=== PATIENT | male | born 1950 | race Caucasian/White ===

== ENCOUNTER 2016-09-04 17:10 | Emergency (ER) | payer MEDICARE, OTHER ==
[2016-09-04 17:44] VITALS: BP 145/72
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
== END 2016-09-04 18:17 | disposition home or self-care (01) ==
LOC: LB.ED 17:10
DX: R07.89 Other chest pain (principal); K21.9 Gastro-esophageal reflux disease without esophagitis; E03.9 Hypothyroidism, unspecified; F41.9 Anxiety disorder, unspecified; Z87.440 Personal history of urinary (tract) infections; Z79.899 Other long term (current) drug therapy; Z79.82 Long term (current) use of aspirin
CPT/HCPCS: 93005; 99283; 99283-25

== ENCOUNTER 2016-12-25 17:51 | Emergency (ER) | payer MEDICARE, OTHER ==
[2016-12-25] MEDS ORDERED: HYDROmorphone 4 MG/ML Syringe SUBCUT PRN (18:24)
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
[2016-12-25 19:39] VITALS: BP 193/69
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
== END 2016-12-25 21:30 ==
LOC: LB.ED 17:51
DX: S61.511A Laceration without foreign body of right wrist, initial encounter (principal); S61.512A Laceration without foreign body of left wrist, initial encounter; F03.90 Unspecified dementia, unspecified severity, without behavioral disturbance, psychotic disturbance, mood disturbance, and anxiety; M54.9 Dorsalgia, unspecified; G89.29 Other chronic pain; K21.9 Gastro-esophageal reflux disease without esophagitis; E03.9 Hypothyroidism, unspecified; Z79.82 Long term (current) use of aspirin; Z79.899 Other long term (current) drug therapy; X78.8XXA Intentional self-harm by other sharp object, initial encounter
CPT/HCPCS: 96372; 99284; 99285-25

== ENCOUNTER 2018-11-30 10:20 | Observation (INO) | payer MEDICARE, OTHER ==
[2018-11-30] MEDS ORDERED: Dextrose 5%-0.45% NaCl 1,000 ML IV SCH (12:00)
--- NOTE | 2018-11-30 12:01 | EDM.PDOC ---
ED HPI GENERAL MEDICAL PROBLEM - General Chief Complaint: General Stated Complaint: NOT EATING Time Seen by Provider: 11/30/18 10:30 Source of Information: Reports: Patient History Limitations: Reports: Physical Impairment, Other (patient has frontal lobe dementia and has progressive worsening with little to no response on commands) - History of Present Illness INITIAL COMMENTS - FREE TEXT/NARRATIVE: This is a 68yo M in the ER for increased weakness some unresponsiveness and tremors. 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 His symptoms of frontal lobe dementia have slowly progressed over the years and he has difficulty responding to yes or no questions and commands. He did appear alert when I saw him in the ER but per nursing staff he had a bout of unresponsiveness and was brought to the ER shortly after. Patient does not reply but that is his baseline currently. He was alert and looking at me while asking questions but he was unable to answer. He had his mouth open and I did notice some lesions of the lower palate under the tongue. After his exam he appeared to relax and fall asleep. He remains unable or unwilling to move his arms on command. Onset: Sudden Duration: Resolved Prior to Arrival Location: Reports: Generalized Improves with: Reports: None Worsens with: Reports: None Associated Symptoms: Reports: Weakness - Related Data Allergies Allergy/AdvReac Type Severity Reaction Status Date / Time No Known Allergies Allergy Verified 11/30/18 11:39 Home Meds: Home Meds Aspirin [Halfprin] 81 mg PO DAILY 10/26/15 [History] Methocarbamol [Robaxin] 750 mg PO TID PRN 10/26/15 [History] Ranitidine HCl 150 mg PO QPM 10/26/15 [History] traZODone HCl [Trazodone HCl] 100 mg PO QPM 10/26/15 [History] Cholecalciferol (Vitamin D3) [Vitamin D3] 1,000 units PO DAILY 11/05/15 [History ] Escitalopram Oxalate [Lexapro] 10 mg PO DAILY 11/05/15 [History] Hydrocodone/Acetaminophen [Hydrocodon-Acetaminophen 5-325] 1 each PO Q4H PRN [History] LORazepam [Ativan] 0.5 mg PO Q4H PRN 11/05/15 [History] Methylphenidate [Ritalin] 10 mg PO TID 11/05/15 [History] Past Medical History HEENT History: Reports: Hard of Hearing Other Respiratory History: Diminished LS in right base Gastrointestinal History: Reports: GERD Genitourinary History: Reports: Other (See Below) Other Genitourinary History: recent UTI Musculoskeletal History: Reports: Back Pain, Chronic, Other (See Below) Other Musculoskeletal History: fracture of T11 to L1 in 1978 hit by falling tree Neurological History: Reports: Alzheimers Disease, Speech Problems, Other (See Below) Other Neuro History: spinal cord injury - paraplegia. recent dagnosis of frontal, temporal lobe dementia. Expressive asphagia Psychiatric History: Reports: Anxiety, Depression, Other (See Below) Other Psychiatric History: Insomnia, claustrophobia Endocrine/Metabolic History: Reports: Hypothyroidism - Past Surgical History Neurological Surgical History: Reports: Lumbar Spine Dermatological Surgical History: Reports: Skin Graft Social & Family History - Family History Family Medical History: Unobtainable - Caffeine Use Caffeine Use: Reports: Tea ED ROS GENERAL - Review of Systems Review Of Systems: ROS reveals no pertinent complaints other than HPI. ED EXAM, GENERAL - Physical Exam Exam: See Below Exam Limited By: Other (unable to respond and unable or unwilling to move his arms. He is paraplegic) General Appearance: Alert, WD/WN, No Apparent Distress Eye Exam: Bilateral Eye: EOMI, PERRL Ears: Normal External Exam Nose: Normal Inspection Throat/Mouth: Other (under tongue gum/palate lesions) Head: Atraumatic, Normocephalic Neck: Normal Inspection Respiratory/Chest: No Respiratory Distress, Lungs Clear, Normal Breath Sounds Cardiovascular: Normal Peripheral Pulses, Regular Rate, Rhythm Peripheral Pulses: 2+: Dorsalis Pedis (L), Dorsalis Pedis (R) GI/Abdominal: Normal Bowel Sounds Neurological: Slow to Respond (this is his baseline if he responds even at all. ) Psychiatric: Normal Affect, Normal Mood Course - Vital Signs Last Recorded V/S: Last Vital Signs Temp 37.3 C 11/30/18 11:50 Pulse 99 11/30/18 11:50 Resp 24 H 11/30/18 11:50 BP 158/105 H 11/30/18 11:50 Pulse Ox 99 11/30/18 11:50 - Orders/Labs/Meds Orders: Active Orders 24 hr Category Date Time Status Chest 1V Frontal [CR] Stat Exams 11/30/18 10:43 Taken Dextrose 5%-0.45% NaCl [Dextrose 5%-1/2 NS] 1,000 ml Med 11/30/18 12:00 Active IV ASDIRECTED Medication Orders Dextrose/Sodium Chloride (Dextrose 5%-1/2 Ns) 1,000 mls @ 999 mls/hr IV ASDIRECTED BERTHA Last Admin: 11/30/18 13:24 Dose: 999 mls/hr Labs: Laboratory Tests 11/30/18 11/30/18 11/30/18 Range/Units 10:43 10:55 10:55 WBC 11.2 H D (4.0-11.0) K/uL RBC 5.34 (4.50-6.50) M/uL Hgb 16.6 (13.0-18.0) g/dL Hct 47.8 (40.0-54.0) % MCV 90 (76-96) fL MCH 31.1 (27.0-32.0) pg MCHC 34.7 (31.0-35.0) g/dL RDW 14.1 (11.0-16.0) % Plt Count 271 D (150-400) K/uL MPV 10.5 H (6.0-10.0) fL Neut % (Auto) 83.6 H (45.0-70.0) % Lymph % (Auto) 7.9 L (20.0-40.0) % [place] % (Auto) 8.0 (3.0-10.0) % Eos % (Auto) 0.1 L (1.0-5.0) % Baso % (Auto) 0.4 (0.0-0.5) % Neut # (Auto) 9.36 H (2.00-7.50) K/uL Lymph # (Auto) 0.89 L (1.50-4.00) K/uL [place] # (Auto) 0.90 H (0.20-0.80) K/uL Eos # (Auto) 0.01 L (0.04-0.40) K/uL Baso # (Auto) 0.05 (0.02-0.10) K/uL Sodium 147 H (136-145) mmol/L Potassium 3.6 (3.5-5.1) mmol/L Chloride 107 (98-107) mmol/L Carbon Dioxide 29.1 (21.0-32.0) mmol/L Anion Gap 14.5 (5.0-15.0) mmol/L BUN 30 H D (8-26) mg/dL Creatinine 0.77 (0.70-1.30) mg/dL Est Cr Clr Drug Dosing TNP Estimated GFR (MDRD) > 60 (>60) MLS/MIN BUN/Creatinine Ratio 39.0 H (6-25) Glucose 121 H (74-100) mg/dL Lactic Acid (0.90-1.70) mmol/L Calcium 9.5 (8.5-10.1) mg/dL Total Bilirubin 0.8 D (0.0-1.0) mg/dL AST 37 (15-37) U/L ALT 30 (12-78) U/L Alkaline Phosphatase 102 (46-116) U/L Total Protein 8.1 (6.4-8.2) g/dL Albumin 4.1 (3.4-5.0) g/dL Globulin 4.0 (2.2-4.2) g/dL Albumin/Globulin Ratio 1.0 (0.8-2.0) Urine Color Yellow Urine Appearance Slightly cloudy (CLEAR) Urine pH 5.5 (5.0-8.0) Ur Specific [place] >= 1.030 (1.003-1.030) Urine Protein 100 H (NEGATIVE) mg/dL Urine Glucose (UA) Negative (NEGATIVE) mg/dL Urine Ketones 80 H (NEGATIVE) mg/dL Urine Occult Blood Small H (NEGATIVE) Urine Nitrite Negative (NEGATIVE) Urine Bilirubin Small H (NEGATIVE) Urine Urobilinogen 0.2 (0.2-1.0) E.U./dL Ur Leukocyte Esterase Small H (NEGATIVE) Urine RBC 5-10 H /HPF Urine WBC Semi-packed H /HPF Urine WBC Clumps Few /HPF Ur Squamous Epith Cells Few /HPF Urine Bacteria Moderate H /HPF 11/30/18 Range/Units 10:55 WBC (4.0-11.0) K/uL RBC (4.50-6.50) M/uL Hgb (13.0-18.0) g/dL Hct (40.0-54.0) % MCV (76-96) fL MCH (27.0-32.0) pg MCHC (31.0-35.0) g/dL RDW (11.0-16.0) % Plt Count (150-400) K/uL MPV (6.0-10.0) fL Neut % (Auto) (45.0-70.0) % Lymph % (Auto) (20.0-40.0) % [place] % (Auto) (3.0-10.0) % Eos % (Auto) (1.0-5.0) % Baso % (Auto) (0.0-0.5) % Neut # (Auto) (2.00-7.50) K/uL Lymph # (Auto) (1.50-4.00) K/uL [place] # (Auto) (0.20-0.80) K/uL Eos # (Auto) (0.04-0.40) K/uL Baso # (Auto) (0.02-0.10) K/uL Sodium (136-145) mmol/L Potassium (3.5-5.1) mmol/L Chloride (98-107) mmol/L Carbon Dioxide (21.0-32.0) mmol/L Anion Gap (5.0-15.0) mmol/L BUN (8-26) mg/dL Creatinine (0.70-1.30) mg/dL Est Cr Clr Drug Dosing Estimated GFR (MDRD) (>60) MLS/MIN BUN/Creatinine Ratio (6-25) Glucose (74-100) mg/dL Lactic Acid 1.28 (0.90-1.70) mmol/L Calcium (8.5-10.1) mg/dL Total Bilirubin (0.0-1.0) mg/dL AST (15-37) U/L ALT (12-78) U/L Alkaline Phosphatase (46-116) U/L Total Protein (6.4-8.2) g/dL Albumin (3.4-5.0) g/dL Globulin (2.2-4.2) g/dL Albumin/Globulin Ratio (0.8-2.0) Urine Color Urine Appearance (CLEAR) Urine pH (5.0-8.0) Ur Specific [place] (1.003-1.030) Urine Protein (NEGATIVE) mg/dL Urine Glucose (UA) (NEGATIVE) mg/dL Urine Ketones (NEGATIVE) mg/dL Urine Occult Blood (NEGATIVE) Urine Nitrite (NEGATIVE) Urine Bilirubin (NEGATIVE) Urine Urobilinogen (0.2-1.0) E.U./dL Ur Leukocyte Esterase (NEGATIVE) Urine RBC /HPF Urine WBC /HPF Urine WBC Clumps /HPF Ur Squamous Epith Cells /HPF Urine Bacteria /HPF Meds: Medications Generic Name Dose Route Start Last Admin Trade Name Freq PRN Reason Stop Dose Admin Dextrose/Sodium Chloride 1,000 mls @ 999 mls/hr 11/30/18 12:00 11/30/18 13:24 Dextrose 5%-1/2 Ns IV 999 mls/hr ASDIRECTED BERTHA Administration Discontinued Medications Generic Name Dose Route Start Last Admin Trade Name Freq PRN Reason Stop Dose Admin Acetaminophen Confirm 11/30/18 12:10 11/30/18 12:56 Tylenol Administered 11/30/18 12:11 Not Given Dose 650 mg .ROUTE .STK-MED ONE Acetaminophen 650 mg 11/30/18 12:57 Tylenol RECTAL 11/30/18 12:58 NOW ONE Departure - Departure Time of Disposition: 13:00 Disposition: Refer to Observation Condition: Undetermined Clinical Impression: Dehydration, Weakness - Discharge Information - Problem List & Annotations (1) Fronto-temporal dementia SNOMED Code(s): 238767964 Code(s): G31.09 - OTHER FRONTOTEMPORAL DEMENTIA; F02.80 - DEMENTIA IN OTH DISEASES CLASSD ELSWHR W/O BEHAVRL DISTURB Status: Chronic Priority: High Current Visit: No (2) Paraplegia following spinal cord injury SNOMED Code(s): 70774918, 74203071 Code(s): G82.20 - PARAPLEGIA, UNSPECIFIED Status: Acute Current Visit: No (3) Dementia SNOMED Code(s): 53058257 Code(s): F03.90 - UNSPECIFIED DEMENTIA WITHOUT BEHAVIORAL DISTURBANCE Status: Acute Current Visit: No (4) Dehydration SNOMED Code(s): 04616332 Code(s): E86.0 - DEHYDRATION Status: Acute Current Visit: Yes (5) Weakness SNOMED Code(s): 28649443 Code(s): R53.1 - WEAKNESS Status: Acute Current Visit: Yes (6) Palliative care patient SNOMED Code(s): 361582311 Code(s): Z51.5 - ENCOUNTER FOR PALLIATIVE CARE Status: Chronic Current Visit: Yes - Problem List Review Problem List Initiated/Reviewed/Updated: Yes - My Orders Last 24 Hours: My Active Orders 11/30/18 10:43 Chest 1V Frontal [CR] Stat 11/30/18 12:00 Dextrose 5%-0.45% NaCl [Dextrose 5%-1/2 NS] 1,000 ml IV ASDIRECTED - Assessment/Plan Last 24 Hours: My Active Orders 11/30/18 10:43 Chest 1V Frontal [CR] Stat 11/30/18 12:00 Dextrose 5%-0.45% NaCl [Dextrose 5%-1/2 NS] 1,000 ml IV ASDIRECTED Plan: Patient will be placed in observation for monitoring I's and O's and IVF hydration. We will monitor current mental state and motor function. There is the possibility his frontal lobe dementia has just progressed to a point where he is unable to move his arms very much as this has been a slow progression and he has been having decreased motor function gradually. Dehydration - IVF hydration with D5 1/2NS and f/u labs in am.
[2018-11-30] MEDS ORDERED: Acetaminophen 650 MG Supp ONE (12:10)
--- NOTE | 2018-11-30 12:55 | CT ---
DATE OF SERVICE: 11/30/2018 CLINICAL DATA: Swelling right side of mandible Unenhanced facial CT: Multislice axial acquisition without IV contrast was performed. Non-traditional positioning. The patient's head is rotated to the right and tilted. The paranasal sinuses are clear. No air-fluid level. The globes and orbital contents appear unremarkable. There is extensive metallic dental work bilaterally producing beam hardening and streak artifact obscuring adjacent structures. There is mild soft tissue swelling adjacent to the body of the mandible on the right. No evidence of abscess. There is also a 14mm lytic defect within the body of the mandible on the right. This could be related to prior dental work artifact. I cannot completely exclude abscess or osteomyelitis. The parotid glands are symmetric and appear unremarkable. The submandibular glands are symmetric and appear unremarkable. The pharynx , larynx, and airway are unremarkable. No adenopathy. MTDD
[2018-11-30] MEDS ORDERED: Acetaminophen 650 MG Supp RECTAL ONE (12:57)
[2018-11-30] MEDS ORDERED: cefTRIAXone 1 GM Vial IVPUSH SCH (13:45)
--- NOTE | 2018-11-30 13:45 | CR ---
DATE OF SERVICE: 11/30/18 CLINICAL DATA: change in mental status AP PORTABLE CHEST: No priors. The heart size is normal. There is mild eventration of the right hemidiaphragm. The lungs are clear. No pneumothorax. No pleural effusions. No evidence of acute intrathoracic disease. [id number] [facility]
[2018-11-30] MEDS ORDERED: Acetaminophen/HYDROcodone 325-10 MG Tab **OWN MED PO PRN (13:50)
[2018-11-30] MEDS ORDERED: Non-Formulary Medication 1 Each (Fentanyl [Fentanyl] 1 EACH) TD SCH (14:00)
[2018-11-30] MEDS ORDERED: Morphine 2 MG/ML Syringe IVPUSH PRN (14:35)
[2018-11-30] MEDS ORDERED: Morphine 2 MG/ML Syringe ONE (14:36)
[2018-11-30] MEDS: Dextrose 5%-0.45% NaCl 1,000 ML IV SCH ×2 (16:36→23:07)
[2018-11-30] MEDS: Carbidopa/Levodopa 25-100 MG Tab **OWN MED PO SCH ×2 (16:41→19:52)
[2018-11-30] MEDS ORDERED: traZODone 100 MG Tab ONE (19:44)
[2018-11-30] MEDS: Docusate Sodium/Sennosides 50-8.6 MG Tab **OWN MED PO SCH (19:53)
[2018-11-30] MEDS ORDERED: CARBIDOPA PO SCH (20:00)
[2018-11-30] MEDS ORDERED: TRAZODONE 150 MG PO SCH (20:00)
[2018-11-30] MEDS ORDERED: TRAZODONE 300 MG PO SCH (20:00)
[2018-11-30] MEDS ORDERED: LEVODOPA PO SCH (20:00)
[2018-12-01] MEDS ORDERED: Levothyroxine 25 MCG Tab **OWN MED PO SCH (07:00)
[2018-12-01] MEDS: Docusate Sodium/Sennosides 50-8.6 MG Tab **OWN MED PO SCH (07:45)
[2018-12-01] MEDS: Carbidopa/Levodopa 25-100 MG Tab **OWN MED PO SCH (07:48)
[2018-12-01 07:50] VITALS: BP 134/81
[2018-12-01] MEDS ORDERED: DULOXETINE 60 MG PO SCH (08:00)
[2018-12-01] MEDS ORDERED: Non-Formulary Medication 1 Each (Pregabalin [Lyrica] 300 MG) PO SCH (08:00)
--- NOTE | 2018-12-01 13:21 | PCM.DCSUM1 ---
Discharge Summary - Discharge Data Discharge Date: 12/01/18 Discharge Disposition: Home, Self-Care 01 Condition: Good - Discharge Diagnosis/Problem(s) (1) Fronto-temporal dementia SNOMED Code(s): 797520282 ICD Code: G31.09 - OTHER FRONTOTEMPORAL DEMENTIA; F02.80 - DEMENTIA IN OTH DISEASES CLASSD ELSWHR W/O BEHAVRL DISTURB Status: Chronic Priority: High Current Visit: No (2) Paraplegia following spinal cord injury SNOMED Code(s): 12853948, 64170945 ICD Code: G82.20 - PARAPLEGIA, UNSPECIFIED Status: Acute Current Visit: No (3) Dementia SNOMED Code(s): 88159853 ICD Code: F03.90 - UNSPECIFIED DEMENTIA WITHOUT BEHAVIORAL DISTURBANCE Status: Acute Current Visit: No (4) Dehydration SNOMED Code(s): 11924980 ICD Code: E86.0 - DEHYDRATION Status: Acute Current Visit: Yes (5) Weakness SNOMED Code(s): 81160677 ICD Code: R53.1 - WEAKNESS Status: Acute Current Visit: Yes (6) Palliative care patient SNOMED Code(s): 755218623 ICD Code: Z51.5 - ENCOUNTER FOR PALLIATIVE CARE Status: Chronic Current Visit: Yes - Patient Instructions Diet: Usual Diet as Tolerated - Discharge Plan Home Medications: Home Meds Carbidopa/Levodopa [Carbidopa-Levo ER 25-100] 2 each PO Q6H 11/30/18 [History] DULoxetine [Cymbalta] 60 mg PO DAILY 11/30/18 [History] Hydrocodone/Acetaminophen [Hydrocodon-Acetaminophn 10-325] 1 tab PO Q4H PRN [History] Levothyroxine 25 mcg PO ACBREAKFAST 11/30/18 [History] Pregabalin [Lyrica] 300 mg PO DAILY 11/30/18 [History] Ranitidine HCl [Zantac] 150 mg PO DAILY 11/30/18 [History] Sennosides/Docusate Sodium [Senokot-S Tablet] 1 each PO BID 11/30/18 [History] amLODIPine [Norvasc] 5 mg PO DAILY 11/30/18 [History] fentaNYL [Fentanyl] 1 each TD ASDIRECTED 11/30/18 [History] traZODone 300 mg PO BEDTIME 11/30/18 [History] Forms: ED Department Discharge Referrals: PCP,None [Primary Care Provider] - - Discharge Summary/Plan Comment DC Time >30 min.: Yes Discharge Summary/Plan Comment: No changes to medications at this time. Patient will need a swallow evaluation. We will continue to monitor status changes in the care center due to possible worsening baseline of his dementia. Monitor fluid intake and dehydration. Encourage and assist with hydration and food. Follow up in care center as routine. - General Info Date of Service: 12/01/18 Functional Status: Reports: Pain Controlled, Tolerating Diet - Review of Systems General: Reports: Weakness HEENT: Reports: No Symptoms Pulmonary: Reports: No Symptoms Cardiovascular: Reports: No Symptoms Gastrointestinal: Reports: No Symptoms Musculoskeletal: Reports: No Symptoms Skin: Reports: No Symptoms Neurological: Reports: Pre-Existing Deficit - Patient Data Vitals - Most Recent: Last Vital Signs Temp 37.1 C 12/01/18 08:00 Pulse 86 12/01/18 08:00 Resp 16 12/01/18 08:00 BP 134/81 12/01/18 08:00 Pulse Ox 93 L 12/01/18 08:00 Weight - Most Recent: 77.247 kg I&O - Last 24 hours: Intake & Output 11/30/18 12/01/18 12/01/18 22:59 06:59 14:59 Intake Total 2300 1408 Output Total 375 315 350 Balance 1925 1093 -350 Lab Results - Last 24 hrs: Laboratory Results - last 24 hr 12/01/18 12/01/18 Range/Units 07:20 07:20 WBC 7.9 D (4.0-11.0) K/uL RBC 5.29 (4.50-6.50) M/uL Hgb 16.1 (13.0-18.0) g/dL Hct 47.1 (40.0-54.0) % MCV 89 (76-96) fL MCH 30.4 (27.0-32.0) pg MCHC 34.2 (31.0-35.0) g/dL RDW 14.2 (11.0-16.0) % Plt Count 251 (150-400) K/uL MPV 10.5 H (6.0-10.0) fL Neut % (Auto) 74.5 H (45.0-70.0) % Lymph % (Auto) 14.1 L (20.0-40.0) % [place] % (Auto) 10.3 H (3.0-10.0) % Eos % (Auto) 0.5 L (1.0-5.0) % Baso % (Auto) 0.6 H (0.0-0.5) % Neut # (Auto) 5.85 (2.00-7.50) K/uL Lymph # (Auto) 1.11 L (1.50-4.00) K/uL [place] # (Auto) 0.81 H (0.20-0.80) K/uL Eos # (Auto) 0.04 (0.04-0.40) K/uL Baso # (Auto) 0.05 (0.02-0.10) K/uL Sodium 143 (136-145) mmol/L Potassium 3.4 L (3.5-5.1) mmol/L Chloride 105 (98-107) mmol/L Carbon Dioxide 27.6 (21.0-32.0) mmol/L Anion Gap 13.8 (5.0-15.0) mmol/L BUN 26 (8-26) mg/dL Creatinine 0.70 (0.70-1.30) mg/dL Est Cr Clr Drug Dosing 95.00 mL/min Estimated GFR (MDRD) > 60 (>60) MLS/MIN BUN/Creatinine Ratio 37.1 H (6-25) Glucose 121 H (74-100) mg/dL Calcium 8.9 (8.5-10.1) mg/dL Total Bilirubin 1.1 H D (0.0-1.0) mg/dL AST 44 H (15-37) U/L ALT 25 (12-78) U/L Alkaline Phosphatase 99 (46-116) U/L Total Protein 7.8 (6.4-8.2) g/dL Albumin 4.0 (3.4-5.0) g/dL Globulin 3.8 (2.2-4.2) g/dL Albumin/Globulin Ratio 1.1 (0.8-2.0) Med Orders - Current: Current Medications Hydrocodone Bitart/Acetaminophen ([place] 325-10 Mg) 1 tab PO Q4H PRN PRN Reason: Pain Amlodipine Besylate (Norvasc) 5 mg PO DAILY [facility] Last Admin: 12/01/18 07:46 Dose: 5 mg Carbidopa/Levodopa (Sinemet 25-100 Mg) 2 tab PO QID [facility] Last Admin: 12/01/18 07:48 Dose: 2 tab Ceftriaxone Sodium (Rocephin) 1 gm IVPUSH Q24H [facility] Last Admin: 11/30/18 14:47 Dose: 1 gm Duloxetine HCl (Cymbalta) 60 mg PO DAILY [facility] Last Admin: 12/01/18 07:48 Dose: 60 mg Fentanyl (Duragesic) 75 mcg TRDERM Q72H [facility] Dextrose/Sodium Chloride (Dextrose 5%-1/2 Ns) 1,000 mls @ 125 mls/hr IV ASDIRECTED [facility] Last Infusion: 12/01/18 07:38 Dose: Infused Levothyroxine Sodium (Levothyroxine) 25 mcg PO ACBREAKFAST [facility] Last Admin: 12/01/18 07:49 Dose: 25 mcg Morphine Sulfate (Morphine) 2 mg IVPUSH Q4H PRN PRN Reason: Pain Last Admin: 11/30/18 14:53 Dose: 2 mg Non-Formulary Medication (Pregabalin [Lyrica]) 300 mg PO DAILY [facility] Last Admin: 12/01/18 07:52 Dose: 300 mg Trazodone 150mg (Tablets) 2 each PO BEDTIME [facility] Last Admin: 11/30/18 19:52 Dose: 2 each Ranitidine HCl (Zantac) 150 mg PO BEDTIME [facility] Last Admin: 11/30/18 19:54 Dose: 150 mg Senna/Docusate Sodium (Senna Plus) 1 tab PO BID [facility] Last Admin: 12/01/18 07:45 Dose: 1 tab Discontinued Medications Acetaminophen (Tylenol) Confirm Administered Dose 650 mg .ROUTE .STK-MED ONE Stop: 11/30/18 12:11 Last Admin: 11/30/18 12:56 Dose: Not Given Acetaminophen (Tylenol) 650 mg RECTAL NOW ONE Stop: 11/30/18 12:58 Last Admin: 11/30/18 12:40 Dose: 650 mg Dextrose/Sodium Chloride (Dextrose 5%-1/2 Ns) 1,000 mls @ 999 mls/hr IV ASDIRECTED [facility] Last Admin: 11/30/18 13:24 Dose: 999 mls/hr Morphine Sulfate (Morphine) Confirm Administered Dose 2 mg .ROUTE .STK-MED ONE Stop: 11/30/18 14:37 Last Admin: 11/30/18 14:54 Dose: Not Given Non-Formulary Medication (Fentanyl [Fentanyl]) 1 each TD ASDIRECTED [facility] Trazodone HCl (Trazodone) Confirm Administered Dose 300 mg .ROUTE .STK-MED ONE Stop: 11/30/18 19:45 Last Admin: 11/30/18 20:51 Dose: Not Given - Exam General: Reports: Alert HEENT: Reports: Pupils Equal Neck: Reports: Supple Lungs: Reports: Clear to Auscultation, Normal Respiratory Effort Cardiovascular: Reports: Regular Rate, Regular Rhythm GI/Abdominal Exam: Normal Bowel Sounds Neurological: Reports: No New Focal Deficit
[2018-12-03] MEDS ORDERED: FENTANYL 75 MCG/HR TRDERM SCH (08:00)
== END 2018-12-01 12:00 | disposition home or self-care (01) ==
LOC: LB.ED 10:33 → LB.MS 11:50
PROVIDERS: ADMIT Family Medicine; ATTEND Family Medicine
DX: G31.09 Other frontotemporal neurocognitive disorder (principal); F02.80 Dementia in other diseases classified elsewhere, unspecified severity, without behavioral disturbance, psychotic disturbance, mood disturbance, and anxiety; G82.20 Paraplegia, unspecified; E86.0 Dehydration; F41.9 Anxiety disorder, unspecified; K21.9 Gastro-esophageal reflux disease without esophagitis; F32.9 Major depressive disorder, single episode, unspecified; E03.9 Hypothyroidism, unspecified; Z79.899 Other long term (current) drug therapy
CPT/HCPCS: 36415; 70486; 71045; 80053; 81001; 83605; 85025; 87086; 87088; 87186; 96361; 96374; 96375; 99285-25; A9270-GY; G0378; J0696; J2270; J7030

== ENCOUNTER → 2019-05-02 | Outpatient (CLI) | payer MEDICARE, OTHER ==
--- NOTE | 2019-05-03 08:02 | CR ---
DATE OF SERVICE: 05/02/19 CLINICAL DATA: J39.9 AP PORTABLE CHEST: Comparison is made to a prior exam dated 11/30/18. The patient has taken a very poor inspiration. The heart size is normal. The lungs appear clear. No pneumothorax. No pleural effusions. [id number] [facility]
== END ==
LOC: LB.DI 12:56
PROVIDERS: ATTEND Nurse Practitioner Family
DX: J39.9 Disease of upper respiratory tract, unspecified (principal); R30.0 Dysuria
CPT/HCPCS: 36415; 71045; 81001; 85025; 87086; 87088; 87186

== ENCOUNTER → 2019-06-06 | Outpatient (CLI) | payer MEDICARE, OTHER | LOC: LB.CC 14:50 | PROVIDERS: ATTEND Family Medicine | DX: N39.0 Urinary tract infection, site not specified (principal) | CPT/HCPCS: 87086; 87088; 87186 ==

== ENCOUNTER 2019-09-02 10:00 | Inpatient (IN) | payer MEDICARE, OTHER ==
[2019-09-02] MEDS ORDERED: Sodium Chloride 0.9% 1,000 ML IV ONE (10:17)
[2019-09-02] MEDS ORDERED: Piperacillin/Tazobactam 4.5 GM in Sodium Chloride 0.9% 100 ML IV ONE (11:00)
[2019-09-02] MEDS: D5 1/2 NS w/ 20 mEq/L KCl 1,000 ML IV SCH (13:50)
[2019-09-02] MEDS: Piperacillin/Tazobactam 4.5 GM in Sodium Chloride 0.9% 100 ML IV SCH ×2 (18:27→23:00)
[2019-09-02] MEDS ORDERED: SODIUM CHLORIDE 0.9% IV SCH (19:00)
[2019-09-02] MEDS ORDERED: TOBRAMYCIN IV SCH (19:00)
--- NOTE | 2019-09-02 19:59 | PCM.HP.2 ---
H&P History of Present Illness - General Date of Service: 09/02/19 Admit Problem/Dx: Admission Diagnosis/Problem Admission Diagnosis/Problem Periorbital cellulitis Source of Information: Patient History Limitations: Reports: No Limitations - History of Present Illness Initial Comments - Free Text/Narative: Called by Dayana at [facility]. Vasquez had a significant change yesterday. Staff noticed right eye redness and swelling. Some purulent drainage last evening as well. Eye lubricant applied. Ate less than usual this am. Vasquez is not verbal. Has been diaphoretic alternating with rigors. Preference for hosptalization, but no resuscitative measures or feeding tube. Rapid progression of dementia over past year. 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 - Related Data Allergies/Adverse Reactions: Allergies Allergy/AdvReac Type Severity Reaction Status Date / Time No Known Allergies Allergy Verified 11/30/18 11:39 Home Medications: Home Meds Carbidopa/Levodopa [Carbidopa-Levo ER 25-100] 2 each PO Q6H 11/30/18 [History] DULoxetine [Cymbalta] 60 mg PO DAILY 11/30/18 [History] Hydrocodone/Acetaminophen [Hydrocodon-Acetaminophn 10-325] 1 tab PO Q4H PRN [History] Levothyroxine 25 mcg PO ACBREAKFAST 11/30/18 [History] Pregabalin [Lyrica] 300 mg PO DAILY 11/30/18 [History] Sennosides/Docusate Sodium [Senokot-S Tablet] 1 each PO BID 11/30/18 [History] amLODIPine [Norvasc] 5 mg PO DAILY 11/30/18 [History] fentaNYL [Fentanyl] 1 each TD ASDIRECTED 11/30/18 [History] raNITIdine HCl [Zantac] 150 mg PO DAILY 11/30/18 [History] traZODone 300 mg PO BEDTIME 11/30/18 [History] Past Medical History HEENT History: Reports: Hard of Hearing Cardiovascular History: Reports: Hypertension Other Respiratory History: Diminished LS in right base Gastrointestinal History: Reports: GERD Genitourinary History: Reports: Urinary Incontinence, UTI, Recurrent, Other ( See Below) Other Genitourinary History: recent UTI Musculoskeletal History: Reports: Back Pain, Chronic, Other (See Below) Other Musculoskeletal History: fracture of T11 to L1 in 1978 hit by falling tree Neurological History: Reports: Alzheimers Disease, Speech Problems, Other (See Below) Other Neuro History: spinal cord injury - paraplegia. recent dagnosis of frontal, temporal lobe dementia. Expressive asphagia Psychiatric History: Reports: Anxiety, Depression, Other (See Below) Other Psychiatric History: Insomnia, claustrophobia Endocrine/Metabolic History: Reports: Hypothyroidism - Past Surgical History Neurological Surgical History: Reports: Lumbar Spine Dermatological Surgical History: Reports: Skin Graft Social & Family History - Family History Family Medical History: Unobtainable - Caffeine Use Caffeine Use: Reports: Tea H&P Review of Systems - Review of Systems: Review Of Systems: Unable To Obtain Reason Not Obtained: end-stage dementia Exam - Exam Exam: See Below - Vital Signs Vital Signs: Last Vital Signs Temp 99 F 09/02/19 10:15 Pulse 99 09/02/19 10:15 Resp 16 09/02/19 10:15 BP 139/87 09/02/19 10:15 Pulse Ox 95 09/02/19 10:15 Weight: 150 lb 6 oz - Exam General: Obtunded HEENT: EOMI, Other (conjunctival ition and definite redness and induration of right eyelid) Neck: Supple Lungs: Clear to Auscultation, Normal Respiratory Effort Cardiovascular: Regular Rate. No: Systolic Murmur, Diastolic Murmur, Rubs, Gallop/S3, Gallop/S4 GI/Abdominal Exam: Normal Bowel Sounds, Soft, Non-Tender Back Exam: Other (no apparent nuchal findings). No: CVA Tenderness (R), CVA Tenderness (L) Extremities: Pallor Skin: Warm, Moist Neuro Extensive - Mental Status: Withdraws to Pain Neuro Extensive - Motor, Sensory, Reflexes: Total Aphasia, Other (chronic paraplegia) - Patient Data Lab Results Last 24 hrs: Laboratory Results - last 24 hr 09/02/19 09/02/19 09/02/19 Range/Units 11:00 11:00 11:00 WBC 9.0 (4.0-11.0) K/uL RBC 5.32 (4.50-6.50) M/uL Hgb 16.6 (13.0-18.0) g/dL Hct 48.5 (40.0-54.0) % MCV 91 (76-96) fL MCH 31.2 (27.0-32.0) pg MCHC 34.2 (31.0-35.0) g/dL RDW 14.3 (11.0-16.0) % Plt Count 299 D (150-400) K/uL MPV 11.0 H (6.0-10.0) fL Neut % (Auto) 78.8 H (45.0-70.0) % Lymph % (Auto) 11.4 L (20.0-40.0) % [place] % (Auto) 9.1 (3.0-10.0) % Eos % (Auto) 0.1 L (1.0-5.0) % Baso % (Auto) 0.6 H (0.0-0.5) % Neut # (Auto) 7.11 (2.00-7.50) K/uL Lymph # (Auto) 1.03 L (1.50-4.00) K/uL [place] # (Auto) 0.82 H (0.20-0.80) K/uL Eos # (Auto) 0.01 L (0.04-0.40) K/uL Baso # (Auto) 0.05 (0.02-0.10) K/uL Sodium (136-145) mmol/L Potassium (3.5-5.1) mmol/L Chloride (98-107) mmol/L Carbon Dioxide (21.0-32.0) mmol/L Anion Gap (5.0-15.0) mmol/L BUN (8-26) mg/dL Creatinine (0.70-1.30) mg/dL Est Cr Clr Drug Dosing mL/min Estimated GFR (MDRD) (>60) MLS/MIN BUN/Creatinine Ratio (6-25) Glucose (74-100) mg/dL Lactic Acid 1.3 (0.4-2.0) mmol/L Calcium (8.5-10.1) mg/dL Total Bilirubin (0.0-1.0) mg/dL AST (15-37) U/L ALT (12-78) U/L Alkaline Phosphatase (46-116) U/L C-Reactive Protein 10.3 H (0.0-3.0) mg/L Total Protein (6.4-8.2) g/dL Albumin (3.4-5.0) g/dL Globulin (2.2-4.2) g/dL Albumin/Globulin Ratio (0.8-2.0) TSH, Ultra Sensitive 0.703 D (0.358-3.740) uIU/mL Urine Color Urine Appearance (CLEAR) Urine pH (5.0-8.0) Ur Specific [place] (1.003-1.030) Urine Protein (NEGATIVE) mg/dL Urine Glucose (UA) (NEGATIVE) mg/dL Urine Ketones (NEGATIVE) mg/dL Urine Occult Blood (NEGATIVE) Urine Nitrite (NEGATIVE) Urine Bilirubin (NEGATIVE) Urine Urobilinogen (0.2-1.0) E.U./dL Ur Leukocyte Esterase (NEGATIVE) Urine RBC /HPF Urine WBC /HPF Urine WBC Clumps /HPF Ur Squamous Epith Cells /HPF Urine Bacteria /HPF 09/02/19 09/02/19 Range/Units 11:00 11:42 WBC (4.0-11.0) K/uL RBC (4.50-6.50) M/uL Hgb (13.0-18.0) g/dL Hct (40.0-54.0) % MCV (76-96) fL MCH (27.0-32.0) pg MCHC (31.0-35.0) g/dL RDW (11.0-16.0) % Plt Count (150-400) K/uL MPV (6.0-10.0) fL Neut % (Auto) (45.0-70.0) % Lymph % (Auto) (20.0-40.0) % [place] % (Auto) (3.0-10.0) % Eos % (Auto) (1.0-5.0) % Baso % (Auto) (0.0-0.5) % Neut # (Auto) (2.00-7.50) K/uL Lymph # (Auto) (1.50-4.00) K/uL [place] # (Auto) (0.20-0.80) K/uL Eos # (Auto) (0.04-0.40) K/uL Baso # (Auto) (0.02-0.10) K/uL Sodium 145 (136-145) mmol/L Potassium 4.2 (3.5-5.1) mmol/L Chloride 106 (98-107) mmol/L Carbon Dioxide 27.6 (21.0-32.0) mmol/L Anion Gap 15.6 H (5.0-15.0) mmol/L BUN 20 (8-26) mg/dL Creatinine 0.77 (0.70-1.30) mg/dL Est Cr Clr Drug Dosing 84.89 mL/min Estimated GFR (MDRD) > 60 (>60) MLS/MIN BUN/Creatinine Ratio 26.0 H (6-25) Glucose 109 H (74-100) mg/dL Lactic Acid (0.4-2.0) mmol/L Calcium 9.2 (8.5-10.1) mg/dL Total Bilirubin 0.8 (0.0-1.0) mg/dL AST 62 H (15-37) U/L ALT 36 (12-78) U/L Alkaline Phosphatase 135 H (46-116) U/L C-Reactive Protein (0.0-3.0) mg/L Total Protein 8.1 (6.4-8.2) g/dL Albumin 4.1 (3.4-5.0) g/dL Globulin 4.0 (2.2-4.2) g/dL Albumin/Globulin Ratio 1.0 (0.8-2.0) TSH, Ultra Sensitive (0.358-3.740) uIU/mL Urine Color Yellow Urine Appearance Cloudy (CLEAR) Urine pH 7.0 (5.0-8.0) Ur Specific [place] 1.025 (1.003-1.030) Urine Protein Trace H (NEGATIVE) mg/dL Urine Glucose (UA) Negative (NEGATIVE) mg/dL Urine Ketones Trace H (NEGATIVE) mg/dL Urine Occult Blood Negative (NEGATIVE) Urine Nitrite Positive H (NEGATIVE) Urine Bilirubin Negative (NEGATIVE) Urine Urobilinogen 0.2 (0.2-1.0) E.U./dL Ur Leukocyte Esterase Small H (NEGATIVE) Urine RBC 0-5 H /HPF Urine WBC 50-75 H /HPF Urine WBC Clumps Few /HPF Ur Squamous Epith Cells Few /HPF Urine Bacteria Many H /HPF Result Diagrams: 09/02/19 11:00 09/02/19 11:00 Sepsis Event Note - Evaluation Sepsis Screening Result: No Definite Risk - Focused Exam Vital Signs: Vital Signs Temp Pulse Resp BP Pulse Ox 09/02/19 10:15 99 F 99 16 139/87 95 Date Exam was Performed: 09/02/19 Time Exam was Performed: 19:54 *Q Meaningful Use (ADM) - VTE *Q VTE Mechanical Contraindications *Q: Further Opinion Sought VTE Pharmacological Contraindications *Q: Not Candidate LT Anticoag VTE Anticoagulation Contraindications: Comp/Late Effect of Care - VTE Risk Assess *Q Each Risk Factor Represents 1 Point: Sepsis Total Score 1 Point Risk Factors: 1 Each Risk Factor Represents 2 Points: Patient confined to bed greater than 72 hours Total Score 2 Point Risk Factors: 2 Each Risk Factor Represents 3 Points: Age 75 Years or Greater Total Score 3 Point Risk Factors: 3 Each Risk Factor Represents 5 Points: None Total Score 5 Point Risk Factors: 0 Venous Thromboembolism Risk Factor Score *Q: 6 Problem List Initiated/Reviewed/Updated: Yes Orders Last 24hrs: Active Orders 24 hr Category Date Time Status Patient Status [ADT] Routine ADT 09/02/19 10:00 Active CULTURE BLOOD [BC] Routine Lab 09/02/19 10:45 Received CULTURE BLOOD [BC] Routine Lab 09/02/19 11:00 Received CULTURE URINE [RM] Routine Lab 09/02/19 14:35 Ordered D5 1/2 NS w/ 20 mEq/L KCl 1,000 ml Med 09/02/19 11:30 Active IV ASDIRECTED Erythromycin Base [Erythromycin 0.5% Ophth Oint] Med 09/02/19 19:51 Ordered See Dose Instructions EYEBOTH TID PRN Gentamicin 480 mg Med 09/02/19 19:45 Ordered Sodium Chloride 0.9% [Normal Saline] 100 ml IV ONETIME Morphine Sulfate [Morphine] Med 09/02/19 10:17 Active 2 - 4 mg IVPUSH Q2H PRN Piperacillin/Tazobactam [Zosyn] 4.5 gm Med 09/02/19 17:00 Active Sodium Chloride 0.9% [Normal Saline] 100 ml IV Q6H Medication Orders Erythromycin (Erythromycin 0.5% Ophth Oint) 0 gm EYEBOTH TID PRN PRN Reason: Dry Eyes Piperacillin Sod/Tazobactam (Sod 4.5 gm/ Sodium Chloride) 100 mls @ 200 mls/hr IV Q6H BERTHA Last Admin: 09/02/19 18:27 Dose: 200 mls/hr Potassium Chloride/Dextrose/Sod Cl (D5 1/2 Ns W/ 20 Meq/L Kcl) 1,000 mls @ 125 mls/hr IV ASDIRECTED BERTHA Last Admin: 09/02/19 13:50 Dose: 125 mls/hr Gentamicin Sulfate 480 mg/ (Sodium Chloride) 112 mls @ 200 mls/hr IV ONETIME ONE Stop: 09/02/19 20:18 Morphine Sulfate (Morphine) 2 - 4 mg IVPUSH Q2H PRN PRN Reason: Pain Last Admin: 09/02/19 18:20 Dose: 4 mg Assessment/Plan Comment:: bacteremic until proven otherwise (GNR) +/- periorbital cellulitis - Mortality Measure Prognosis:: Poor
[2019-09-03] MEDS: Piperacillin/Tazobactam 4.5 GM in Sodium Chloride 0.9% 100 ML IV SCH ×4 (05:59→23:24)
[2019-09-03] MEDS: Erythromycin Base 0.5% Ophth Oint 3.5 GM Tube EYEBOTH PRN ×2 (10:16→23:26)
[2019-09-03] MEDS: Labetalol 100 MG/20 ML MDV IVPUSH PRN (10:50)
[2019-09-03] MEDS: D5 1/2 NS w/ 20 mEq/L KCl 1,000 ML IV SCH (14:15)
[2019-09-04] MEDS: Piperacillin/Tazobactam 4.5 GM in Sodium Chloride 0.9% 100 ML IV SCH ×4 (04:44→22:57)
[2019-09-04] MEDS: Labetalol 100 MG/20 ML MDV IVPUSH PRN ×3 (04:59→21:31)
[2019-09-04] MEDS: Erythromycin Base 0.5% Ophth Oint 3.5 GM Tube EYEBOTH PRN ×2 (10:56→21:08)
[2019-09-04] MEDS: Scopolamine 1.5 MG Transdermal Patch TRDERM SCH (13:03)
[2019-09-04] MEDS: Acetaminophen 650 MG Supp RECTAL PRN ×2 (13:07→21:09)
[2019-09-04] MEDS: Albuterol/Ipratropium 3.0-0.5 MG/3 ML Neb Soln NEB PRN ×2 (13:22→21:08)
[2019-09-04] MEDS: Sodium Chloride 0.9% 10 ML Syringe FLUSH SCH (21:32)
[2019-09-05] MEDS: Sodium Chloride 0.9% 10 ML Syringe FLUSH PRN ×2 (05:25→06:01)
[2019-09-05] MEDS: Piperacillin/Tazobactam 4.5 GM in Sodium Chloride 0.9% 100 ML IV SCH ×2 (05:28→10:22)
[2019-09-05] MEDS: Erythromycin Base 0.5% Ophth Oint 3.5 GM Tube EYEBOTH PRN ×2 (08:21→21:04)
[2019-09-05] MEDS: Sodium Chloride 0.9% 10 ML Syringe FLUSH SCH ×2 (08:31→21:03)
[2019-09-05] MEDS: Acetaminophen 650 MG Supp RECTAL PRN ×2 (10:23→17:33)
[2019-09-05] MEDS: Albuterol/Ipratropium 3.0-0.5 MG/3 ML Neb Soln NEB PRN (17:22)
[2019-09-05] MEDS: Scopolamine 1.5 MG Transdermal Patch TRDERM SCH (17:42)
[2019-09-05] MEDS ORDERED: Carboxymethylcellulose Sodium 1% Ophth Gel 0.4 ML UD Box of 30 EYEBOTH PRN (18:12)
[2019-09-05] MEDS ORDERED: Amoxicillin/Clavulanate K 875-125 MG Tab PO SCH (20:00)
[2019-09-05] MEDS: Labetalol 100 MG/20 ML MDV IVPUSH PRN (20:00)
[2019-09-06] MEDS: Sodium Chloride 0.9% 10 ML Syringe FLUSH SCH ×2 (08:00→19:50)
--- NOTE | 2019-09-06 11:50 | PCM.PN ---
- General Info Date of Service: 09/04/19 Subjective Update: unobtainable - Patient Data Vitals - Most Recent: Last Vital Signs Temp 98.2 F 09/06/19 11:29 Pulse 94 09/06/19 11:29 Resp 19 09/06/19 11:29 BP 157/108 H 09/06/19 11:29 Pulse Ox 92 L 09/06/19 11:29 Weight - Most Recent: 136 lb 5.73 oz Will Results Last 24 Hours: Microbiology 09/02/19 10:45 Aerobic Blood Culture - Preliminary Blood NO GROWTH AFTER 3 DAYS Anaerobic Blood Culture - Preliminary NO GROWTH AFTER 3 DAYS 09/02/19 11:00 Aerobic Blood Culture - Preliminary Blood NO GROWTH AFTER 3 DAYS Anaerobic Blood Culture - Preliminary NO GROWTH AFTER 3 DAYS Med Orders - Current: Current Medications Acetaminophen (Tylenol) 650 mg RECTAL Q6H PRN PRN Reason: Fever Last Admin: 09/05/19 17:33 Dose: 650 mg Albuterol/Ipratropium (Duoneb 3.0-0.5 Mg/3 Ml) 3 ml NEB Q6H PRN PRN Reason: Wheezing Last Admin: 09/05/19 17:22 Dose: 3 ml Amoxicillin/Clavulanate Potassium (Augmentin 875 Mg/125 Mg) 1 tab PO BID BERTHA Stop: 09/10/19 12:00 Artificial Tears (Refresh Celluvisc) 1 each EYEBOTH ASDIRECTED PRN PRN Reason: Dry Eyes Erythromycin (Erythromycin 0.5% Ophth Oint) 0 gm EYEBOTH TID PRN PRN Reason: Dry Eyes Last Admin: 09/05/19 21:04 Dose: 1 applic Labetalol HCl (Normodyne) 5 mg IVPUSH Q6H PRN; Protocol PRN Reason: Hypertension Last Admin: 09/05/19 20:00 Dose: 5 mg Morphine Sulfate (Morphine) 2 - 4 mg IVPUSH Q2H PRN PRN Reason: Pain Last Admin: 09/06/19 02:38 Dose: 4 mg Scopolamine (Transderm-Scop) 1.5 mg TRDERM Q72H BERTHA Last Admin: 09/05/19 17:42 Dose: 1.5 mg Sodium Chloride (Saline Flush) 10 ml FLUSH BID BERTHA Last Admin: 09/05/19 21:03 Dose: 10 ml Sodium Chloride (Saline Flush) 10 ml FLUSH ASDIRECTED PRN PRN Reason: Keep Vein Open Last Admin: 09/05/19 06:01 Dose: 10 ml Discontinued Medications Piperacillin Sod/Tazobactam (Sod 4.5 gm/ Sodium Chloride) 100 mls @ 200 mls/hr IV Q6H COUNT INCLUDES THE [facility] Last Admin: 09/05/19 10:22 Dose: 200 mls/hr Sodium Chloride (Normal Saline) 1,000 mls @ 999 mls/hr IV .BOLUS ONE Stop: 09/02/19 11:17 Last Admin: 09/02/19 11:00 Dose: 999 mls/hr Piperacillin Sod/Tazobactam (Sod 4.5 gm/ Sodium Chloride) 100 mls @ 200 mls/hr IV ONETIME ONE Stop: 09/02/19 11:29 Last Admin: 09/02/19 11:12 Dose: 200 mls/hr Potassium Chloride/Dextrose/Sod Cl (D5 1/2 Ns W/ 20 Meq/L Kcl) 1,000 mls @ 125 mls/hr IV ASDIRECTED BERTHA Last Admin: 09/03/19 14:15 Dose: 125 mls/hr Tobramycin 500 mg/ Sodium (Chloride) 262.5 mls @ 250 mls/hr IV ASDIRECTED BERTHA Gentamicin Sulfate 480 mg/ (Sodium Chloride) 112 mls @ 200 mls/hr IV ONETIME ONE Stop: 09/02/19 20:18 Last Admin: 09/02/19 19:45 Dose: 200 mls/hr - Exam General: Alert, No Acute Distress HEENT: Pupils Equal, Pupils Reactive, EOMI Neck: No JVD Lungs: Clear to Auscultation, Normal Respiratory Effort Cardiovascular: Regular Rate, Regular Rhythm GI/Abdominal Exam: Normal Bowel Sounds, Soft, Non-Tender Extremities: Normal Capillary Refill Skin: Warm, Dry Psy/Mental Status: Alert Sepsis Event Note - Evaluation Sepsis Screening Result: No Definite Risk - Focused Exam Vital Signs: Vital Signs Temp Pulse Resp BP BP Pulse Ox Pulse Ox 09/06/19 11:29 98.2 F 94 19 157/108 H 92 L 09/06/19 07:19 98.0 F 111 H 19 115/90 94 L 09/06/19 06:37 98.7 F 32 H 97 09/06/19 05:45 93 L 09/06/19 05:43 93 L 03/19/20 05:34 100.8 F H 30 H 151/103 H 99 09/06/19 04:30 99.8 F 106 H 36 H 145/103 H 98 98 09/06/19 03:25 103 H 33 H 147/103 H 94 L 09/06/19 03:10 110 H 35 H 94 L 09/06/19 03:00 38 H 146/104 H 87 L 91 L 09/06/19 02:50 117 H 39 H 151/110 H 81 L 09/06/19 02:40 99 F 117 H 40 H 149/106 H 79 L 09/06/19 00:00 99 F 96 19 145/91 H 94 L Date Exam was Performed: 09/06/19 Time Exam was Performed: 11:45 - Problem List Review Problem List Initiated/Reviewed/Updated: No - My Orders Last 24 Hours: My Active Orders 09/05/19 18:12 Carboxymethylcellulose Sodium [Refresh Celluvisc] 1 each EYEBOTH ASDIRECTED PRN 09/05/19 20:00 Amoxicillin/Clavulanate K [Augmentin 875 MG/125 MG] 1 tab PO BID - Assessment Assessment:: cover with abx one time gent dose for potential pseudomonas continue to follow - Plan Plan:: bacteremic until proven otherwise (GNR) +/- periorbital cellulitis
[2019-09-06] MEDS: Sodium Chloride 0.9% 10 ML Syringe FLUSH PRN (12:00)
[2019-09-06] MEDS ORDERED: D5 1/2 NS w/ 20 mEq/L KCl 1,000 ML ONE (15:11)
[2019-09-06] MEDS: D5 1/2 NS w/ 20 mEq/L KCl 1,000 ML IV SCH ×2 (15:15→22:52)
[2019-09-06] MEDS ORDERED: cefTRIAXone 1 GM Vial ONE (16:50)
[2019-09-06] MEDS ORDERED: cefTRIAXone 1 GM Vial IVPUSH SCH (17:00)
[2019-09-06] MEDS: Erythromycin Base 0.5% Ophth Oint 3.5 GM Tube EYEBOTH PRN (19:31)
[2019-09-06] MEDS: Labetalol 100 MG/20 ML MDV IVPUSH PRN (19:39)
[2019-09-07] MEDS: Sodium Chloride 0.9% 10 ML Syringe FLUSH SCH (08:00)
[2019-09-07 10:16] VITALS: BP 132/79; PULSE 95
--- NOTE | 2019-09-07 11:40 | PCM.DCSUM1 ---
Discharge Summary - Hospital Course HPI Initial Comments: Patient admitted by Dr. Monteiro for possible bacteremia/periorbital cellulitis after being evaluated for fever and rigors. Has been treated for past [address] Monteiro discussed with patient's /health care proxy patient being transferred back to [facility] for comfort care. Genet had po and IV intake several days prior to Admission Diagnosis: Stroke: No - Discharge Data Discharge Date: 09/07/19 Discharge Disposition: DC/Tfer to [facility] Condition: Poor - Referral to Home Health Primary Care Physician: PCP None - Discharge Plan *PRESCRIPTION DRUG MONITORING PROGRAM REVIEWED*: Not Applicable *COPY OF PRESCRIPTION DRUG MONITORING REPORT IN PATIENT CROW: Not Applicable Home Medications: Home Meds Carbidopa/Levodopa [Carbidopa-Levo ER 25-100] 2 each PO Q6H 11/30/18 [History] DULoxetine [Cymbalta] 60 mg PO DAILY 11/30/18 [History] Hydrocodone/Acetaminophen [Hydrocodon-Acetaminophn 10-325] 1 tab PO Q4H PRN [History] Levothyroxine 25 mcg PO ACBREAKFAST 11/30/18 [History] Pregabalin [Lyrica] 300 mg PO DAILY 11/30/18 [History] Sennosides/Docusate Sodium [Senokot-S Tablet] 1 each PO BID 11/30/18 [History] amLODIPine [Norvasc] 5 mg PO DAILY 11/30/18 [History] fentaNYL [Fentanyl] 1 each TD ASDIRECTED 11/30/18 [History] raNITIdine HCl [Zantac] 150 mg PO DAILY 11/30/18 [History] traZODone 300 mg PO BEDTIME 11/30/18 [History] Oxygen Therapy Mode: Room Air - Discharge Summary/Plan Comment DC Time >30 min.: No - Patient Data Vitals - Most Recent: Last Vital Signs Temp 97.9 F 09/07/19 08:00 Pulse 95 09/07/19 08:00 Resp 28 H 09/07/19 08:00 BP 132/79 09/07/19 08:00 Pulse Ox 95 09/07/19 08:00 Weight - Most Recent: 59.965 kg CARLITO Results - Last 24 hrs: Microbiology 09/02/19 11:00 Aerobic Blood Culture - Preliminary Blood NO GROWTH AFTER 4 DAYS Anaerobic Blood Culture - Preliminary NO GROWTH AFTER 4 DAYS 09/02/19 10:45 Aerobic Blood Culture - Preliminary Blood NO GROWTH AFTER 4 DAYS Anaerobic Blood Culture - Preliminary NO GROWTH AFTER 4 DAYS Med Orders - Current: Current Medications Acetaminophen (Tylenol) 650 mg RECTAL Q6H PRN PRN Reason: Fever Last Admin: 09/05/19 17:33 Dose: 650 mg Albuterol/Ipratropium (Duoneb 3.0-0.5 Mg/3 Ml) 3 ml NEB Q6H PRN PRN Reason: Wheezing Last Admin: 09/05/19 17:22 Dose: 3 ml Artificial Tears (Refresh Celluvisc) 1 each EYEBOTH ASDIRECTED PRN PRN Reason: Dry Eyes Ceftriaxone Sodium (Rocephin) 1 gm IVPUSH Q24H BERTHA Last Admin: 09/06/19 16:59 Dose: 1 gm Erythromycin (Erythromycin 0.5% Ophth Oint) 0 gm EYEBOTH TID PRN PRN Reason: Dry Eyes Last Admin: 09/06/19 19:31 Dose: 1 applic Potassium Chloride/Dextrose/Sod Cl (D5 1/2 Ns W/ 20 Meq/L Kcl) 1,000 mls @ 125 mls/hr IV ASDIRECTED BERTHA Last Admin: 09/06/19 22:52 Dose: 125 mls/hr Labetalol HCl (Normodyne) 5 mg IVPUSH Q6H PRN; Protocol PRN Reason: Hypertension Last Admin: 09/06/19 19:39 Dose: 5 mg Morphine Sulfate (Morphine) 2 - 4 mg IVPUSH Q2H PRN PRN Reason: Pain Last Admin: 09/07/19 04:16 Dose: 4 mg Scopolamine (Transderm-Scop) 1.5 mg TRDERM Q72H BERTHA Last Admin: 09/05/19 17:42 Dose: 1.5 mg Sodium Chloride (Saline Flush) 10 ml FLUSH BID BERTHA Last Admin: 09/07/19 08:00 Dose: 10 ml Sodium Chloride (Saline Flush) 10 ml FLUSH ASDIRECTED PRN PRN Reason: Keep Vein Open Last Admin: 09/06/19 12:00 Dose: 10 ml Discontinued Medications Ceftriaxone Sodium (Rocephin) Confirm Administered Dose 1 gm .ROUTE .STK-MED ONE Stop: 09/06/19 16:51 Last Admin: 09/06/19 17:13 Dose: Not Given Piperacillin Sod/Tazobactam (Sod 4.5 gm/ Sodium Chloride) 100 mls @ 200 mls/hr IV Q6H BERTHA Last Admin: 09/05/19 10:22 Dose: 200 mls/hr Sodium Chloride (Normal Saline) 1,000 mls @ 999 mls/hr IV .BOLUS ONE Stop: 09/02/19 11:17 Last Admin: 09/02/19 11:00 Dose: 999 mls/hr Piperacillin Sod/Tazobactam (Sod 4.5 gm/ Sodium Chloride) 100 mls @ 200 mls/hr IV ONETIME ONE Stop: 09/02/19 11:29 Last Admin: 09/02/19 11:12 Dose: 200 mls/hr Potassium Chloride/Dextrose/Sod Cl (D5 1/2 Ns W/ 20 Meq/L Kcl) 1,000 mls @ 125 mls/hr IV ASDIRECTED BERTHA Last Admin: 09/03/19 14:15 Dose: 125 mls/hr Tobramycin 500 mg/ Sodium (Chloride) 262.5 mls @ 250 mls/hr IV ASDIRECTED [facility] Gentamicin Sulfate 480 mg/ (Sodium Chloride) 112 mls @ 200 mls/hr IV ONETIME ONE Stop: 09/02/19 20:18 Last Admin: 09/02/19 19:45 Dose: 200 mls/hr Potassium Chloride/Dextrose/Sod Cl (D5 1/2 Ns W/ 20 Meq/L Kcl) Confirm Administered Dose 1,000 mls @ as directed .ROUTE .STK-MED ONE Stop: 09/06/19 15:12 Last Admin: 09/06/19 16:46 Dose: Not Given *Q Meaningful Use (DIS) - VTE *Q VTE Mechanical Contraindications *Q: Further Opinion Sought VTE Pharmacological Contraindications *Q: Not Candidate LT Anticoag VTE Anticoagulation Contraindications: Comp/Late Effect of Care
== END 2019-09-07 13:24 | DRG 603 ==
LOC: UNDOADMIN 10:00 → LB.MS 10:00
PROVIDERS: ADMIT Family Medicine; ATTEND Family Medicine
DX: L03.213 Periorbital cellulitis (principal); G82.20 Paraplegia, unspecified; H91.90 Unspecified hearing loss, unspecified ear; I10 Essential (primary) hypertension; K21.9 Gastro-esophageal reflux disease without esophagitis; R32 Unspecified urinary incontinence; G89.29 Other chronic pain; M54.9 Dorsalgia, unspecified; G30.9 Alzheimer's disease, unspecified; F02.80 Dementia in other diseases classified elsewhere, unspecified severity, without behavioral disturbance, psychotic disturbance, mood disturbance, and anxiety; F41.9 Anxiety disorder, unspecified; F32.9 Major depressive disorder, single episode, unspecified; Z79.890 Hormone replacement therapy; Z79.899 Other long term (current) drug therapy; Z87.440 Personal history of urinary (tract) infections
CPT/HCPCS: 36415; 80053; 81001; 83605; 84443; 85025; 86140; 87040; 87086; 87088; 87186; A9270-GY; J0696; J1580; J2270; J2543; J3480; J7030; J7050; J7620-GY